=== PATIENT | male | born 1995 | race Caucasian/White ===

== ENCOUNTER 2021-08-04 10:24 | Emergency (ER) | payer OTHER, SELFPAY ==
[2021-08-04 10:30] VITALS: BP 149/85; PULSE 82; RESP 12; TEMP 37; O2SAT 100
--- NOTE | 2021-08-04 10:31 | ED.MALEGU ---
HPI - Male Genitourinary General Chief complaint: Urogenital-Male Stated complaint: Injection Time Seen by Provider: 08/04/21 10:32 Source: patient Mode of arrival: ambulatory Limitations: no limitations History of Present Illness HPI Narrative: 26 yo M presents stating he did telehealth visit and sent off oral swab to lab. Was positive for gonorrhea. Was told needed to go to an for treatment. Pt states he was notified he had gonorrhea exposure. has slight sore throat and swollen lymph node to L side of neck. No penile discharge, dysuria or swelling. he is no longer having sore throat or lymph node. Related Data Allergies Allergy/AdvReac Type Severity Reaction Status Date / Time No Known Drug Allergies Allergy Unknown NONE Verified 08/04/21 10:34 Review of Systems Review of Systems: CONSTITUTIONAL: Denies fever, chills, or sweats. EYES: Denies visual changes, redness, or discharge. ENT: Denies rhinorrhea, congestion, sore throat, or otalgia. CARDIOVASCULAR: Denies chest pain, palpitations, or edema. RESPIRATORY: Denies cough or dyspnea. GASTROINTESTINAL: Denies abdominal pain, nausea, vomiting, or diarrhea. GENITOURINARY: Denies dysuria or hematuria. SKIN: Denies rash or itching. MUSCULOSKELETAL: Denies back pain, joint pain, or myalgia. NEUROLOGIC: Denies headache, numbness, or weakness. PSYCHIATRIC: Denies anxiety or depression. All other systems reviewed are negative, except as documented in HPI. PMFSH Comments At time of signature, agree with nursing past medical, surgical, social and family history. There is no relevant family history pertinent to the presenting complaint. Exam Narrative: GENERAL: This is a well-nourished, well-developed patient, in no apparent distress. HEAD: normocephalic, atraumatic. EYES: PERRL. Sclera clear/white. Vision is grossly intact. EARS: External ears normal, auditory canals clear and without drainage, TMs normal without perforation. Hearing grossly intact. NOSE: External nose normal with no obvious nasal discharge, nares without redness, no rhinorrhea. THROAT: Mucous membranes moist, posterior pharynx clear. NECK: Neck supple, non-tender without lymphadenopathy, masses or thyromegaly. CARDIOVASCULAR: Regular rate and rhythm without murmurs, gallops, or rubs. RESPIRATORY: Clear to auscultation. Breath sounds equal bilaterally. No wheezes, rales, or rhonchi. GASTROINTESTINAL: Abdomen soft, non-tender, nondistended. Bowel sounds are active. No hepato-splenomegaly, or palpable masses. No guarding. SKIN: warm, Dry, intact with no suspicious lesions or rash, good texture and turgor. NEURO: awake, alert, and oriented to person, place and time. There were no obvious focal neurologic abnormalities. EXTREMITIES: No joint tenderness, effusion, or edema noted. No calf tenderness. Negative Homans sign bilaterally. BACK: Nontender without deformity. No CVA tenderness. Course Course Level of Care: Express Care Visit Vital Signs Vital signs: Reviewed MDM - Male Genitourinary MDM Narrative Medical decision making narrative: Patient is aware of diagnosis, understands and agrees to treatment plan. Anticipatory guidance given. Patient agrees to follow-up as directed and is aware of reasons to seek care at the emergency department. Portions of this record may have been created with voice recognition software Discharge Plan Discharge Clinical Impression: Gonorrhea Patient Disposition: Home, Self-Care Condition: Stable Instructions: Antibiotic Form, Gonorrhea (ED) Additional Instructions: Take antibiotics as prescribed until gone. Avoid all sexual activity for 2 to 3 weeks after treatment. If you are still having symptoms follow up with your primary care physician. Prescriptions: New doxycycline hyclate 100 mg capsule 100 mg PO BID 7 Days Qty: 14 RF: 0 Follow-up/Referrals: PHYSICIAN,[facility] DEVELOPER [Primary Care Provider] - Time of Disposition: 10:44
--- NOTE | 2021-08-04 11:27 | PC.NURSE ---
rocephin 500 mg was give IM right hip
== END 2021-08-04 11:11 | disposition home or self-care (01) ==
PROVIDERS: Emergency Provider Nurse Practitioner Family
DX: A54.9 Gonococcal infection, unspecified (principal)
CPT/HCPCS: 96372; 99213; G0463; J0696

== ENCOUNTER 2022-06-25 19:12 | Inpatient (IN) | payer OTHER, SELFPAY ==
--- NOTE | ~2022-06-25 | CT_ITS ---
EXAMINATION: CT chest abdomen pelvis w con DATE: 06/25/2022 20:13 INDICATION: Right lower quadrant abdominal pain. Nausea and diarrhea for 2 days. TECHNIQUE: Computed tomography (CT) of the chest, abdomen, and pelvis was performed with 100 CC Omnip aque 350 intravenous contrast. Automated exposure control and iterative reconstruction technique were employed. Exam dose: 569.03 mGy-cm total exam DLP. COMPARISON: None FINDINGS: CHEST CT: Normal heart size. No pericardial or pleural effusion. No hilar or mediastinal mass lesion or lymphad enopathy. No thoracic aortic aneurysm or dissection. The lungs are clear of infiltrate or consolidati on. ABDOMEN/PELVIS CT: The appendix is dilated, measuring up to 1.7 cm diameter, with thickening of the wall of the appendix and prominent periappendiceal fat stranding. There are appendicoliths. There is thickening of the ri ght anterior and posterior pararenal fascia as well. No abscess or intraperitoneal free air is detect ed. No hepatic, splenic, pancreatic, adrenal or renal space-occupying mass lesion is detected. No bile du ct or pancreatic duct dilatation. No urinary tract calculus or hydroureteronephrosis. The urinary palmer dder and prostate gland are unremarkable. No bowel obstruction, bowel wall thickening, pneumatosis or intraperitoneal free air. Small fat-containing umbilical hernia no inguinal hernias detected. IMPRESSION: Acute appendicitis, prominent periappendiceal inflammation Reviewed, dictated and finalized at [facility] Reviewed, dictated and finalized at [facility] PRUNER
[2022-06-25 19:13] VITALS: BP 154/72; PULSE 89; RESP 16; TEMP 36.6; O2SAT 100
--- NOTE | 2022-06-25 19:28 | ED.ABDPAIN ---
HPI - Abdominal Pain General Chief Complaint: Abdominal Pain <RODOLFO Jovel Last Filed: 06/25/22 21:04> Stated Complaint: abd pain <RODOLFO Jovel Last Filed: 06/25/22 21:04> Time Seen by Provider: 06/25/22 19:24 <RODOLFO Jovel Last Filed: 06/25/22 21:04> Source: patient <RODOLFO Jovel Last Filed: 06/25/22 21:04> Mode of arrival: ambulatory <RODOLFO Jovel Last Filed: 06/25/22 21:04> Limitations: no limitations <RODOLFO Jovel Last Filed: 06/25/22 21:04> History of Present Illness HPI narrative: Patient is a 27-year-old male who presents the ED with report of RLQ abdominal pain. Patient reports he first developed abdominal bloating and generalized discomfort 2 days ago. He took Pepto Bismol and felt better. Yesterday he experienced some pain in his mid abdomen/periumbilical region. Pain progressively worsened and became more localized to his right lower quadrant today. He tried taking ibuprofen this morning with minimal relief. Pain worse with movement, going over bumps in the road. No alleviating factors. He reports nausea and diarrhea, but denies vomiting, fevers, dysuria, hematuria, constipation, rectal bleeding. <RODOLFO Jovel Last Filed: 06/25/22 21:04> Related Data Home Medications: Home Medications Medication Instructions Recorded Confirmed No Home Medications 06/25/22 06/25/22 <RODOLFO Jovel Last Filed: 06/25/22 21:04> Allergies/Adverse Reactions: Allergies Allergy/AdvReac Type Severity Reaction Status Date / Time No Known Drug Allergies Allergy Unknown NONE Verified 08/04/21 10:34 <RODOLFO Jovel Last Filed: 06/25/22 21:04> Review of Systems Review of Systems: CONSTITUTIONAL: Denies fever, chills, or sweats. CARDIOVASCULAR: Denies chest pain. RESPIRATORY: Denies dyspnea. GASTROINTESTINAL: See HPI. GENITOURINARY: Denies dysuria or hematuria. <Zainab Benjamin PA-C - Last Filed: 06/25/22 21:04> All systems reviewed & are unremarkable except as noted in HPI and below <Zainab Benjamin PA-C - Last Filed: 06/25/22 21:04> PMFSH Past Medical History Medical History: Medical History (Updated 06/25/22 @ 19:29 by Zainab Benjamin PA-C) No pertinent past medical history <Zainab Benjamin PA-C - Last Filed: 06/25/22 21:04> Surgical History Surgical History: Surgical History (Updated 06/25/22 @ 19:29 by Zainab Benjamin PA-C) No pertinent past surgical history <Zainab Benjamin PA-C - Last Filed: 06/25/22 21:04> Social History Social History: Social History (Updated 06/25/22 @ 19:29 by Zainab Benjamin PA-C) Smoking status: Never smoker Smokeless tobacco user: dissolvable tobacco Second hand tobacco smoke exposure: No Alcohol intake: current Substance use: current Substance use type: marijuana Lack of Transportation: No Lack of Food: Never True Current Housing: I Have Housing Concerned About Future Housing: No Difficulty Paying Gas/Electric Bills: No Difficulty Paying for Meds: No Currently Unemployed: No Education: Bachelor's Degree Difficulty w/ Childcare or Family Care: No Spiritual care concerns: No <Zainab Benjamin PA-C - Last Filed: 06/25/22 21:04> Exam Narrative: GENERAL: Well appearing, well-nourished, non-toxic, in no acute distress. HEAD: Normocephalic, atraumatic. NECK: Supple. No adenopathy, no masses. RESPIRATORY: Airway patent, respirations nonlabored. Clear to auscultation bilaterally, no rales, rhonchi, wheezing. CARDIOVASCULAR: Regular rate and rhythm without murmurs, rubs, or gallops. Peripheral pulses 2+ and equal bilaterally. ABDOMINAL: Soft, mild tenderness in periumbilical region and left lower quadrant, +Rosving's. Fairly severe focal right lower quadrant tenderness with voluntary guarding and +rebo
--- NOTE | 2022-06-25 19:37 | PC.NURSE ---
Pt reports abdominal bloating a few days ago that resolved after taking pepto bismol. Diffuse abdominal pain started earlier today and is now located on right side. Pt describes as a sharp burning pain. +Nausea and diarrhea. Denies vomiting, urinary symptoms, or blood in his stool. Reports 4 episodes of diarrhea today. States certain movements and positions makes the pain worse.
[2022-06-25] MEDS: SODIUM CHLORIDE 0.9% IV 1,000 ML 999 ML IV CONT ×2 (19:42→21:06)
[2022-06-25] MEDS: ONDANSETRON INJ 4 MG/2 ML VIAL IV PUSH ×3 (19:43→21:38)
[2022-06-25] MEDS: MORPHINE SULFATE (*CRX) 4 MG/ML INJ IV PUSH ×2 (19:44→20:32)
[2022-06-25 19:48] LABS: Basophils Absolute Auto 0.1 K/mm3 (0.0-0.1); Basophils Percent Auto 0.5 % (0.2-1.2); Eosinophils Absolute Auto 0.1 K/mm3 (0-0.3); Eosinophils Percent Auto 0.5 % (0-4.4); Hematocrit 43.6 % (42.0-52.0); Hemoglobin 15.1 g/dL (14.0-18.0); Immature Granulocyte Absolute 0.04 K/mm3 (0.00-0.031); Immature Granulocyte Percent A 0.3 % (0-0.5); Lymphocytes Absolute Auto 1.27 K/mm3 (0.9-3.2); Mean Corpuscular HGB Conc 34.6 g/dl (32-36); Mean Corpuscular Hemoglobin 32.4 pg (26-34); Mean Corpuscular Volume 93.6 fl (80-100); Mean Platelet Volume 9.9 fl (7.4-10.4); Monocytes Percent Auto 7.6 % (2.6-8.5); Neutrophils Absolute Auto 10.4 K/mm3 (1.3-6.7); Neutrophils Percent Auto 81.1 % (45.5-73.1); Platelet Count Result 193 k/mm3 (150-375); Red Blood Count 4.66 M/mm3 (4.6-6.20); Red Cell Distribution Width 11.4 % (11.5-14.5); White Blood Count 12.8 K/mm3 (4.5-10.0)
[2022-06-25 19:58] LABS: Alanine Aminotransferase 21 U/L (6-50); Albumin Level 4.9 g/dL (3.5-5.1); Alkaline Phosphatase 60 U/L (38-126); Anion Gap 14 mmol/L (8-16); Aspartate Amino Transferase 29 U/L (17-59); Bilirubin,Total 1.4 mg/dL (0.2-1.3); Blood Urea Nitrogen 11 mg/dL (9-20); Calcium 9.8 mg/dL (8.4-10.2); Carbon Dioxide 24 mmol/L (22-30); Chloride 96 mmol/L (98-107); Estimated CRCL calculation 135 ml/min; Estimated Glomerular Filt Rate > 60; Glucose 97 mg/dL (65-110); Lipase 45 U/L (23-300); Sodium 134 mmol/L (137-145)
[2022-06-25 20:02] LABS: Appearance Urine Clear (Clear); Bilirubin Urine 1+ (Negative); Blood Urine Negative (Negative); Color Urine Yellow (Yellow); Glucose Urine UA Negative (Negative); Ketones Urine 4+ mg/dL (Negative); Leukocyte Esterase Ur Negative LEU/UL (Negative); Nitrate Urine Negative (Negative); Protein Urine Negative (Negative); Specific Grav Ur 1.025 (1.001-1.035); Urobilinogen Urine 0.2 mg/dL (<2.0)
[2022-06-25 20:08] LABS: Mucus Urine Rare /lpf; RBC Urine 0-2 /hpf (0-2); WBC Urine 0-3 /hpf
[2022-06-25 20:09] LABS: Add Urine Microscopic? YES
[2022-06-25 20:28] VITALS: BP 135/82; PULSE 106; RESP 18; O2SAT 100
[2022-06-25] MEDS: FAMOTIDINE 20 MG/2 ML VIAL IV PUSH ×2 (21:06→21:48)
[2022-06-25 21:18] VITALS: BP 125/67; PULSE 99; RESP 18; O2SAT 99
[2022-06-25 21:34] VITALS: BMI 25.2
[2022-06-25 21:35] VITALS: BP 131/81; PULSE 100; RESP 18; TEMP 37.3; O2SAT 100
[2022-06-25 21:41] LABS: Influenza A QL RT-PCR Negative (Negative); Influenza B QL RT-PCR Negative (Negative); SARS-CoV-2 RNA PCR Negative
[2022-06-25 21:43] VITALS: BP 131/81; PULSE 100; RESP 18; TEMP 37.3; O2SAT 100
[2022-06-25] MEDS: HYDROmorphone HCL INJ (*CRX) 1 MG/ML SYR IV PUSH (23:12)
[2022-06-26] VITALS (16 sets, daily range): BP systolic 110–145; BP diastolic 56–81; PULSE 82–115; RESP 12–20; TEMP 36.7–38.7; O2SAT 93–99
[2022-06-26] MEDS: MORPHINE SULFATE (*CRX) 4 MG/ML INJ IV PUSH (01:26)
[2022-06-26] MEDS: ONDANSETRON INJ 4 MG/2 ML VIAL IV PUSH ×3 (01:26→17:42)
[2022-06-26] MEDS: HYDROmorphone HCL INJ (*CRX) 1 MG/ML SYR IV PUSH ×4 (03:43→23:48)
--- NOTE | 2022-06-26 08:16 | PM.IMHP ---
H&P: HPI History of Present Illness Date/Time: 06/26/22 08:16 Chief Complaint: Acute appendicitis Narrative: Patient is a 27-year-old male who presented to the emergency room last evening with a 2 day history of worsening lower abdominal pain which localized to right lower quadrant of the abdomen. He had elevated white blood cell count but had no fever. CT scan of the abdomen and pelvis showed an acutely inflamed appendix with appendicoliths noted. The diameter of the appendix was 1.7cm without obvious evidence of perforation or periappendiceal abscess. He otherwise is a healthy individual without any chronic medical conditions. He has never had abdominal surgery in the past. Review of Systems Review of Systems: The remainder of the review of systems to include constitutional, HEENT, cardiovascular, respiratory, GI, , integumentary, musculoskeletal, endocrine, immunologic, hematologic, psychiatric, and neurologic are all negative except for which is mentioned above in the HPI. [facility] Past Medical History Medical History No pertinent past medical history Surgical History Surgical History No pertinent past surgical history Social History Social History Smoking status: Never smoker Smokeless tobacco user: dissolvable tobacco Second hand tobacco smoke exposure: No Alcohol intake: current Substance use: current Substance use type: marijuana Lack of Transportation: No Lack of Food: Never True Current Housing: I Have Housing Concerned About Future Housing: No Difficulty Paying Gas/Electric Bills: No Difficulty Paying for Meds: No Currently Unemployed: No Education: Bachelor's Degree Difficulty w/ Childcare or Family Care: No Spiritual care concerns: No 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 Meds Home Medications and Allergies Home Medications Medication Instructions Recorded Confirmed Type No Home Medications 06/25/22 06/25/22 History Allergies Allergy/AdvReac Type Severity Reaction Status Date / Time No Known Drug Allergies Allergy Unknown NONE Verified 08/04/21 10:34 Vital Signs Vital Signs - 24 hr 06/25/22 19:13 06/25/22 20:28 06/25/22 21:18 Temperature 36.6 C Pulse Rate 89 106 H 99 Respiratory Rate 16 18 18 Blood Pressure 154/72 H 135/82 125/67 Pulse Oximetry 100 100 99 Oxygen Delivery Room Air 06/25/22 21:35 06/25/22 21:43 06/26/22 03:17 Temperature 37.3 C 37.3 C 38.1 C H Pulse Rate 100 100 112 H Respiratory Rate 18 18 18 Blood Pressure 131/81 131/81 128/74 Pulse Oximetry 100 100 Oxygen Delivery 06/26/22 08:11 Temperature 37.9 C H Pulse Rate Respiratory Rate Blood Pressure Pulse Oximetry Oxygen Delivery Exam Const: General: uncomfortable HENMT: Mouth: Yes dry mucous membranes Eyes: General: appearance normal, both eyes and all related structures Pupils: Equal, round and reactive pupils present Neck: Neck: supple and no JVD Resp: Effort & Inspection: normal respiratory effort Auscultation: clear to auscultation bilaterally Cardio: Rate: regular rate Rhythm: regular rhythm GI: Other: Abdomen is soft and nondistended. The patient has guarding and localized peritoneal signs and tenderness upon palpation of the right lower quadrant. No generalized peritoneal signs are noted. No masses are palpated and no ventral hernias are noted. No old surgical scars are noted on the abdomen. Skin: General skin exam: normal color and no rashes or lesions noted Neuro: General: gait normal Speech: normal speech Motor exam (neuro): 5/5 motor strength present throughout Sensory Exam: normal sensation Extrem: General: normal to inspection Psych: Mental Status: mental status grossly normal Affect: normal affect H&P: Results Labs Labs: Short CBC
--- NOTE | 2022-06-26 08:19 | PC.NURSE ---
to surgery via bed
[2022-06-26] MEDS: LACTATED RINGERS 1,000 ML 30 ML IV CONT (08:20)
--- NOTE | 2022-06-26 08:42 | WPDANESEPPF ---
Anes - Initial Pre Proc Eval Procedure: Operation Date: 06/26/22 10:00 Proposed Procedures p Laparoscopic Appendectomy,Possible Open - Carlos Lofton MD Date/Time: 06/26/22 08:42 Surgeon: Carlos Lofton MD Pre Op Diagnosis: Acute Appendicitis Patient Data Age: 27 Gender: M Height: 1.85 m Weight: 84.5 kg Last Vital Signs Temp 38.7 C H 06/26/22 08:21 Pulse 107 H 06/26/22 08:21 Resp 20 06/26/22 08:21 BP 145/76 H 06/26/22 08:21 Pulse Ox 99 06/26/22 08:21 O2 Del Method Room Air 06/26/22 08:21 Allergies Allergy/AdvReac Type Severity Reaction Status Date / Time No Known Drug Allergies Allergy Unknown NONE Verified 08/04/21 10:34 Home Medications Medication Instructions Recorded Confirmed Type No Home Medications 06/25/22 06/25/22 History Laboratory Tests 06/25/22 06/25/22 06/25/22 19:33 19:33 19:33 WBC 12.8 K/mm3 H K/mm3 (4.5-10.0) RBC 4.66 M/mm3 M/mm3 (4.6-6.20) Hgb 15.1 g/dL g/dL (14.0-18.0) Hct 43.6 % % (42.0-52.0) MCV 93.6 fl fl (80-100) MCH 32.4 pg pg (26-34) MCHC 34.6 g/dl g/dl (32-36) RDW 11.4 % L % (11.5-14.5) Plt Count 193 k/mm3 k/mm3 (150-375) MPV 9.9 fl fl (7.4-10.4) Immature Gran % (Auto) 0.3 % % (0-0.5) Neut % (Auto) 81.1 % H % (45.5-73.1) Lymph % (Auto) 10.0 % L % (18.3-44.2) [place] % (Auto) 7.6 % % (2.6-8.5) Eos % (Auto) 0.5 % % (0-4.4) Baso % (Auto) 0.5 % % (0.2-1.2) Lymph # (Auto) 1.27 K/mm3 K/mm3 (0.9-3.2) [place] # (Auto) 1.0 K/mm3 H K/mm3 (0.1-0.6) Eos # (Auto) 0.1 K/mm3 K/mm3 (0-0.3) Baso # (Auto) 0.1 K/mm3 K/mm3 (0.0-0.1) Abs Immat Gran (auto) 0.04 K/mm3 H K/mm3 (0.00-0.031) Absolute Neuts (auto) 10.4 K/mm3 H K/mm3 (1.3-6.7) Absolute Nucleated RBC 0.0 K/mm3 K/mm3 (0.0-0.012) Nucleated RBC % 0.0 % % (0.0-0.2) Sodium 134 mmol/L L mmol/L (137-145) Potassium 4.0 mmol/L mmol/L (3.4-5.0) Chloride 96 mmol/L L mmol/L (98-107) Carbon Dioxide 24 mmol/L mmol/L (22-30) Anion Gap 14 mmol/L mmol/L (8-16) BUN 11 mg/dL mg/dL (9-20) Creatinine 0.80 mg/dL mg/dL (0.7-1.3) Estim Creat Clear Calc 135 ml/min ml/min Estimated GFR > 60 (59 - ) Glucose 97 mg/dL mg/dL (65-110) Calcium 9.8 mg/dL mg/dL (8.4-10.2) Total Bilirubin 1.4 mg/dL H mg/dL (0.2-1.3) AST 29 U/L U/L (17-59) ALT 21 U/L U/L (6-50) Alkaline Phosphatase 60 U/L U/L (38-126) Total Protein 8.0 g/dL g/dL (6.3-8.2) Albumin 4.9 g/dL g/dL (3.5-5.1) Lipase 45 U/L U/L (23-300) Urine Color Yellow (Yellow) Urine Appearance Clear (Clear) Urine pH 6.0 (5.0-9.0) Ur Specific Center 1.025 (1.001-1.035) Urine Protein Negative mg/dL mg/dL (Negative) Urine Glucose (UA) Negative mg/dL mg/dL (Negative) Urine Ketones 4+ mg/dL H mg/dL (Negative) Ur Blood (Man) Negative (Negative) Urine Nitrate Negative (Negative) Urine Bilirubin 1+ H (Negative) Urine Urobilinogen 0.2 mg/dL mg/dL (<2.0) Leukocyte Esterase Rfl Negative CHRISTIAN/UL CHRISTIAN/UL (Negative) Urine RBC 0-2 /hpf /hpf (0-2) Urine WBC 0-3 /hpf /hpf Urine Mucus Rare /lpf /lpf Influenza A (RT-PCR) Influenza B (RT-PCR) SARS-CoV-2 RNA (RT-PCR) 06/25/22 20:51 WBC RBC Hgb Hct MCV MCH MCHC RDW Plt Count MPV Immature Gran % (Auto) Neut % (Auto) Lymph % (Auto) [place] % (Auto) Eos % (Auto) B
--- NOTE | 2022-06-26 08:53 | WPDHPUPDATE1 ---
History and Physical Update Update Date/Time: 06/26/22 08:53 History and Physical has been reviewed, including an updated exam of the patient. There are NO changes in the patient's condition. Risks, benefits, and alternatives have been discussed and questions answered. Patient agrees to proceed with procedure.
[2022-06-26] MEDS: LIDOCAINE HCL 1% PF 30 ML VIAL INFILTRATE (09:35)
[2022-06-26] MEDS: BUPIVACAINE/EPINEPHRINE 0.5% 10 ML VIAL 30 ML INFILTRATE (09:36)
[2022-06-26] MEDS: KETOROLAC 30 MG/ML VIAL (*BKC) IV PUSH (10:14)
--- NOTE | 2022-06-26 10:32 | W.PM.PROC2 ---
Procedure Note - Detailed Date of Procedure 06/26/22 Pre-op Diagnosis Acute Appendicitis Post-op Diagnosis Same Procedure Performed Laparoscopic appendectomy. Surgeon Carlos Lofton MD Anesthesia General Indications The patient is a 19-year-old male who presented to the emergency room late last evening with a 2 day history of worsening right lower quadrant abdominal pain. CT scan showed an advanced acute appendicitis without rupture or periappendiceal abscess at the time of the CT scan. He is being brought to the room now for an emergent laparoscopic appendectomy. Findings The appendix was very dilated and inflamed. The distal 2/3 of the appendix was gangrenous. There is no periappendiceal abscess or rupture of the appendix prior to the surgery. 2 fecaliths were noted in the appendix. There was peritonitis in the right lower quadrant but no purulent fluid or inflammatory changes in the pelvis. Description of Procedure Informed consent was obtained the patient was brought to the operating room where he is placed in supine position and then general endotracheal anesthesia was administered. A Saenz catheter was placed to decompress the bladder and an orogastric tube was placed to decompress the stomach. The abdomen was then prepped and draped in usual sterile fashion. A time-out was then performed correctly identifying the patient as well as procedure to be performed and verified that he was on scheduled IV antibiotics. I then gained access into the abdomen by placing a 5millimeter Optiview port in the left upper quadrant the direct optical insertion. The abdomen was insufflated to a lack a pneumoperitoneum of 15millimeters mercury CO2. I then placed additional trocar ports to include a 12millimeter periumbilical trocar port and a 5millimeter trocar port in suprapubic region and in the right lower quadrant. working through all these ports I was able to identify the dilated and inflamed and partially necrotic appendix in the right lower quadrant. the appendix was gangrenous in the distal 2/3 but there was no perforation or periappendiceal abscess. Upon manipulating the appendix because it was all dilated and tense in the ruptured in the midportion. I quickly aspirated the pus and removed the 2 fecaliths which came out of the appendix. I was unable to make a defect through the mesoappendix just at the base the appendix with a laparoscopic dissector and then used a 45millimeter Endo-RAVINDRA Stapler to divide the appendix flush with the cecum. I then used a vascular reload to the Stapler to divide the mesoappendix. The distal half of the mesoappendix was then divided after placement of hemoclips with her scopic scissors. The appendix was then placed into an Endo-Catch bag and brought out through the periumbilical trocar port site. I then irrigated out the right lower quadrant the abdomen with about 2liters of saline irrigation. I irrigated until the fluid was clear. Both staple lines were inspected and they were hemostatic. There was no gross fecal material left in the right lower quadrant after the irrigation. I then irrigated out the pelvis and aspirate the fluid which was relatively clear. I then placed a 15 Romanian round Lance drain through the supraumbilical trocar port site and placed it into the pelvis with the tip running alongside the staple lines. The drain was sutured in placed the skin level with a 3 nylon suture. I then removed all the trocar ports under direct visualization and all port sites were hemostatic. I then allowed the abdomen to decompress. I then irrigated all the port sites with sterile saline solution. The 12millimeter periumbilical trocar port site fascia defect was closed utilizing a 0 Vicryl suture placed in a figure of eight fashion. The incisions were then closed utilizing running subcuticular 4 0 Monocryl sutures and then skin glue was placed for a final dressing. The patient tolerated the procedure well and there no complications. All sp
--- NOTE | 2022-06-26 11:37 | SUR.PHASEI ---
1130 - family member updated
--- NOTE | 2022-06-26 12:45 | PC.NURSE ---
pt returned from surgery, resting comfortably, zofran given for very mild nausea at this time, reviewed orders and plan of care, father at bedside
[2022-06-26] MEDS: FAMOTIDINE 20 MG/2 ML VIAL IV PUSH (20:13)
[2022-06-26] MEDS: DEXTROSE 5%/0.9% SOD CHL 1,000 ML 100 ML IV CONT (21:00)
[2022-06-26] MEDS: oxyCODONE HCL (*CRX) 5 MG TAB IR PO (21:21)
[2022-06-27] MEDS: oxyCODONE HCL (*CRX) 5 MG TAB IR PO ×3 (03:52→17:33)
[2022-06-27] MEDS: DEXTROSE 5%/0.9% SOD CHL 1,000 ML 100 ML IV CONT ×2 (04:45→20:09)
[2022-06-27] MEDS: HYDROmorphone HCL INJ (*CRX) 1 MG/ML SYR IV PUSH ×2 (04:49→23:01)
[2022-06-27 05:02] VITALS: BP 101/77; PULSE 95; RESP 18; TEMP 37.4; O2SAT 93
[2022-06-27] MEDS: FAMOTIDINE 20 MG/2 ML VIAL IV PUSH ×2 (08:12→20:10)
[2022-06-27] MEDS: ONDANSETRON INJ 4 MG/2 ML VIAL IV PUSH (08:15)
[2022-06-27 11:52] LABS: Basophils Percent Auto 0.3 % (0.2-1.2); Hematocrit 41.6 % (42.0-52.0); Hemoglobin 13.9 g/dL (14.0-18.0); Immature Granulocyte Absolute 0.04 K/mm3 (0.00-0.031); Immature Granulocyte Percent A 0.3 % (0-0.5); Lymphocytes Absolute Auto 0.54 K/mm3 (0.9-3.2); Lymphocytes Percent Auto 3.8 % (18.3-44.2); Mean Corpuscular HGB Conc 33.4 g/dl (32-36); Mean Corpuscular Hemoglobin 32.6 pg (26-34); Mean Corpuscular Volume 97.7 fl (80-100); Mean Platelet Volume 9.6 fl (7.4-10.4); Monocytes Absolute Auto 1.2 K/mm3 (0.1-0.6); Monocytes Percent Auto 8.7 % (2.6-8.5); Neutrophils Absolute Auto 12.2 K/mm3 (1.3-6.7); Neutrophils Percent Auto 86.9 % (45.5-73.1); Platelet Count Result 187 k/mm3 (150-375); Red Blood Count 4.26 M/mm3 (4.6-6.20); Red Cell Distribution Width 11.9 % (11.5-14.5); White Blood Count 14.1 K/mm3 (4.5-10.0)
[2022-06-27 12:01] LABS: Anion Gap 7 mmol/L (8-16); Blood Urea Nitrogen 10 mg/dL (9-20); Calcium 8.8 mg/dL (8.4-10.2); Carbon Dioxide 30 mmol/L (22-30); Chloride 95 mmol/L (98-107); Estimated CRCL calculation 100 ml/min; Estimated Glomerular Filt Rate > 60; Glucose 130 mg/dL (65-110); Potassium 4.1 mmol/L (3.4-5.0); Sodium 132 mmol/L (137-145)
--- NOTE | 2022-06-27 13:23 | PM.PNGS ---
Progress Note: A&P Assessment and Plan (1) Acute appendicitis: Code(s): K35.80 - Unspecified acute appendicitis Status: Acute Assessment and Plan: The patient is doing as expected for postop day 1 after his laparoscopic appendectomy for gangrenous appendicitis and non fecal peritonitis. He has tolerated clear liquids and is ambulating without difficulty. he remained on IV antibiotics and will follow white blood cell count. The drain has no purulence in an. Will continue supportive care today and advance diet as tolerated. I encouraged him to sit up in a chair a walker as much as he can take. Hopefully things will improve more tomorrow and his postoperative ileus will resolve and he can be discharged home on oral antibiotics. Subjective Subjective Date/Time Seen: 06/27/22 13:23 Post Op day: 1 (Status post laparoscopic appendectomy for gangrenous appendicitis) Patient reports: feels better, pain is less, no flatus and afebrile Interval history: The patient feels better today and is up walking around in his room. he has tolerated some clear liquids. He feels bloated has not had any flatus or bowel movement yet. He has soreness around his port site incisions but his severe right lower quadrant abdominal pain has resolved. White blood cell count today is 14,000. He remains on IV antibiotics due to the gangrenous appendicitis. Exam GI: Other: Abdomen soft and mildly distended. Decreased bowel sounds. Port site incisions are dry intact with expected tenderness around the port sites. RONALD drain as expected serosanguineous fluid without evidence of fecal material in the fluid. Objective Data Vital Signs Vital Signs: Vital Signs - 24 hr 06/26/22 13:40 06/26/22 14:40 06/26/22 18:41 Temperature 36.9 C 36.8 C 37.7 C H Pulse Rate 100 88 109 H Respiratory Rate 18 16 18 Blood Pressure 129/66 116/60 122/70 Pulse Oximetry 96 96 99 Oxygen Delivery 06/26/22 19:31 06/26/22 20:02 06/26/22 23:49 Temperature 37.7 C H 37.2 C Pulse Rate 107 H 109 H Respiratory Rate 18 20 Blood Pressure 121/68 115/56 L Pulse Oximetry 97 93 Oxygen Delivery Room Air 06/27/22 05:02 Temperature 37.4 C Pulse Rate 95 Respiratory Rate 18 Blood Pressure 101/77 Pulse Oximetry 93 Oxygen Delivery Intake/Output Intake/Output: Intake & Output 06/24/22 06/25/22 06/26/22 06/27/22 23:59 23:59 23:59 23:59 Intake Total 1050 1810 1590 Output Total 50 1590 Balance 1050 1760 0 Meds/Results Medications: Active Medications Generic Name Dose Route Start Last Admin Trade Name Freq PRN Reason Stop Dose Admin Famotidine 20 mg 06/25/22 21:00 06/27/22 08:12 Famotidine 20 Mg/2 Ml Vial IV PUSH 20 mg Q12HR JD Administration Hydromorphone HCl 1 mg 06/25/22 20:30 06/27/22 04:49 Hydromorphone Hcl Inj (*Crx) 1 Mg/Ml Syr IV PUSH 1 mg Q4H PRN Administration Pain Rated 7-10 Piperacillin/Tazobactam/Dextrose 3.375 gm in 50 mls @ 100 mls/hr 06/26/22 06:00 06/27/22 11:33 Zosyn 3.375 Gm/D5w 50ml Pm IVPB 100 mls/hr Q6H JD Administration Dextrose/Sodium Chloride 1,000 mls @ 100 mls/hr 06/26/22 08:30 06/27/22 04:52 Dextrose 5% Sodium Chloride 0.9% IV CONT Not Given .Q10H JD Ondansetron HCl 4 mg 06/25/22 20:30 06/27/22 08:15 Ondansetron Inj 4 Mg/2 Ml Vial IV PUSH 4 mg Q4H PRN Administration Nausea Oxycodone HCl 5 mg 06/26/22 12:14 06/27/22 11:33 Oxycodone Hcl (*Crx) 5 Mg Tab Ir PO 5 mg Q6H PRN Administration Pain Rated 7-10 Radiology Results: ITS Impressions Chest/Abdomen/Pelvis CT 06/25/22 20:16 IMPRESSION: Acute appendicitis, prominent periappendiceal inflammation Labs Labs: Laboratory Results - last 24 hr 06/27/22 06/27/22 11:45 11:45 WBC 14.1 H RBC 4.26 L Hgb 13.9 L Hct 41.6 L MCV 97.7 MCH 32.6 MCHC 33.4 RDW 11.9 Plt Count 187 MPV 9.6 Immature Gran % (Auto) 0.3 Neut % (Auto) 86.
[2022-06-27] MEDS: LACTATED RINGERS 1,000 ML 250 ML IV CONT (14:49)
[2022-06-27 15:05] VITALS: BP 115/69; PULSE 91; RESP 22; TEMP 37.4; O2SAT 98
[2022-06-27 20:01] VITALS: BP 105/62; PULSE 101; RESP 20; TEMP 38; O2SAT 97
[2022-06-27 21:00] VITALS: TEMP 37
[2022-06-27 21:06] VITALS: TEMP 37
[2022-06-28 00:16] VITALS: BP 120/65; PULSE 100; RESP 20; TEMP 37.3; O2SAT 96
[2022-06-28] MEDS: oxyCODONE HCL (*CRX) 5 MG TAB IR PO (04:19)
[2022-06-28] MEDS: DEXTROSE 5%/0.9% SOD CHL 1,000 ML 100 ML IV CONT (05:13)
[2022-06-28 05:30] VITALS: BP 111/68; PULSE 84; RESP 20; TEMP 37.4; O2SAT 96
[2022-06-28 05:40] LABS: Basophils Percent Auto 0.3 % (0.2-1.2); Eosinophils Percent Auto 0.5 % (0-4.4); Hematocrit 37.2 % (42.0-52.0); Hemoglobin 12.1 g/dL (14.0-18.0); Immature Granulocyte Absolute 0.02 K/mm3 (0.00-0.031); Immature Granulocyte Percent A 0.3 % (0-0.5); Lymphocytes Absolute Auto 0.87 K/mm3 (0.9-3.2); Lymphocytes Percent Auto 11.2 % (18.3-44.2); Mean Corpuscular HGB Conc 32.5 g/dl (32-36); Mean Corpuscular Hemoglobin 32.4 pg (26-34); Mean Corpuscular Volume 99.7 fl (80-100); Mean Platelet Volume 10.3 fl (7.4-10.4); Monocytes Absolute Auto 0.7 K/mm3 (0.1-0.6); Monocytes Percent Auto 9.3 % (2.6-8.5); Neutrophils Absolute Auto 6.1 K/mm3 (1.3-6.7); Neutrophils Percent Auto 78.4 % (45.5-73.1); Platelet Count Result 166 k/mm3 (150-375); Red Blood Count 3.73 M/mm3 (4.6-6.20); Red Cell Distribution Width 11.9 % (11.5-14.5); White Blood Count 7.8 K/mm3 (4.5-10.0)
[2022-06-28 05:50] LABS: Anion Gap 3 mmol/L (8-16); Blood Urea Nitrogen 6 mg/dL (9-20); Calcium 8.4 mg/dL (8.4-10.2); Carbon Dioxide 32 mmol/L (22-30); Chloride 99 mmol/L (98-107); Estimated CRCL calculation 121 ml/min; Estimated Glomerular Filt Rate > 60; Glucose 119 mg/dL (65-110); Potassium 3.9 mmol/L (3.4-5.0); Sodium 134 mmol/L (137-145)
[2022-06-28] MEDS: FAMOTIDINE 20 MG/2 ML VIAL IV PUSH (09:00)
--- NOTE | 2022-06-28 12:38 | PM.DS ---
DS: Admitting Diagnosis Discharge Date June 28, 2022 Admitting Diagnosis Acute appendicitis DS: Discharge Diagnosis Discharge Diagnosis (1) Acute gangrenous appendicitis: Code(s): K35.891 - Other acute appendicitis without perforation, with gangrene Status: Resolved Assessment and Plan: Patient underwent a emergent laparoscopic appendectomy. He remained in the hospital for 2 days postop for additional IV antibiotic therapy due to rupture of the appendix during the surgery. He is doing well now and his white blood cell count is normalized. We will remove his RONALD drain and discharge him home on oral antibiotics for another 7 days. DS: Summary Hospital Course Reason for hospitalization: acute appendicitis Hospital Course: patient presented to the emergency room with a 2 day history of worsening mid abdominal pain which localized to right lower quadrant of the abdomen. He was hemodynamically stable and afebrile at the time of presentation. Abdominal exam at that time revealed regarding and rebound tenderness to palpation of the right lower quadrant over the area of McBurney's point. He had elevated white blood cell count of 13,000 at time of admission. CT scan abdomen pelvis showed a dilated and inflamed appendix measuring 1.7cm in diameter without evidence of rupture or periappendiceal abscess at the time of the CT scan. He was given IV fluids and admitted to the surgical floor on IV antibiotics ( Zosyn ). The next morning he was still stable that the pain had increased and so he was taken emergently to the operating room where he underwent a successful laparoscopic appendectomy. During manipulation of the appendix it did rupture and there was spillage of pus and fecaliths. For this reason after surgery he had a short postoperative ileus and reactive leukocytosis which both resolved. He continued on IV antibiotics for 2 days after surgery. At the time of discharge his white blood cell count had normalized and he was afebrile. His pain was much improved and the output from the RONALD drain was serous. The drain was removed prior to discharge and he was sent home on Augmentin for oral antibiotics for another 7 days Status at Discharge Cognitive/behavioral status at discharge: mental status time of discharge is normal Functional status at discharge: independent ambulation Overall status at discharge: patient is back to baseline Time Spent with Patient Time attestation: Total time spent providing and/or coordinating discharge services: Time spent: Less than 30 minutes Exam Const: General: comfortable HENMT: Mouth: Yes moist mucous membranes Eyes: Sclera: sclerae normal Pupils: Equal, round and reactive pupils present EOM: EOMs intact bilaterally Neck: Neck: supple and no JVD Resp: Effort & Inspection: normal respiratory effort Auscultation: clear to auscultation bilaterally Cardio: Rate: regular rate Rhythm: regular rhythm GI: Other: Abdomen is soft and nondistended. Expected mild tenderness to palpation around the port sites. Port site incisions are healing well without redness or drainage. RONALD drain was removed at the bedside and the site was covered with dry gauze. : Male General Exam: Yes normal external exam Skin: General skin exam: normal color and no rashes or lesions noted Neuro: General: gait normal Motor exam (neuro): 5/5 motor strength present throughout and Motor abnormalites present Sensory Exam: normal sensation Extrem: General: normal to inspection Psych: Mental Status: mental status grossly normal Affect: normal affect DS: Data Data Completed and Pending Pending studies at discharge: Pending at discharge 06/26/22 09:44 Surgical [PTH] Routine Labs on day of discharge: Labs from last 24 hours 06/28/22 06/28/22 04:18 04:18 WBC 7.8 RBC 3.73 L Hgb 12.1 L Hct 37.2 L MCV 99.7 MCH 32.4 MCHC 32.5 RDW 11.9 Plt Count 166 MPV 10.3
--- NOTE | 2022-06-28 12:58 | PC.NURSE ---
Dr. Lofton removed the RONALD drain at around 1255 06/28/22.
== END 2022-06-28 13:55 | disposition home or self-care (01) | DRG 343 ==
LOC: ANHED 20:31 → ANH2MED 21:03
PROVIDERS: Physician Assistant; Admitting Provider Surgery; Emergency Provider General Practice; Visit Provider Surgery
PROC: 0DTJ4ZZ Resection of Appendix, Percutaneous Endoscopic Approach (ICD-10-PCS; CPT 44970; principal; 2022-06-26 10:00)
DX: K35.31 Acute appendicitis with localized peritonitis and gangrene, without perforation (principal); K38.1 Appendicular concretions; Z20.822 Contact with and (suspected) exposure to COVID-19; K35.32 Acute appendicitis with perforation, localized peritonitis, and gangrene, without abscess
CPT/HCPCS: 36415; 71260; 74177; 80048; 80053; 81001; 83690; 85025; 87636; 88304; 96361; 96365; 96366; 96375; 96376; 99285; A9270; G0378; J0131; J0330; J1170; J1885; J2250; J2270; J2405; J2543; J2710; J7030; J7042; J7120; Q9967

== ENCOUNTER 2023-06-01 13:28 | Emergency (ER) | payer OTHER, SELFPAY ==
[2023-06-01 13:34] VITALS: BP 128/73; PULSE 81; RESP 16; TEMP 37; O2SAT 100
--- NOTE | 2023-06-01 13:36 | ED.URI ---
HPI - URI/Sore Throat General Chief Complaint: Upper Respiratory Infection Stated Complaint: Strep symptoms Time Seen by Provider: 06/01/23 13:36 Source: patient, RN notes reviewed and old records reviewed Mode of arrival: ambulatory Limitations: no limitations History of Present Illness HPI Narrative: 28-year-old male presents to the [facility] with a sore throat since yesterday. Has taken Motrin and Tylenol MD elicited complaint: sore throat Onset (ago): day(s) (1) Treatments prior to arrival: acetaminophen and ibuprofen Related Data Allergies Allergy/AdvReac Type Severity Reaction Status Date / Time No Known Drug Allergies Allergy Unknown NONE Verified 08/04/21 10:34 Review of Systems Review of Systems: All systems reviewed & are unremarkable except as noted in HPI and below Constitutional: Constitutional: Reports no additional constitutional complaints Eyes: Eyes: Reports no additional eye complaints ENT: Reports as per HPI and Reports sore throat Cardiovascular: Cardiovascular: Reports no additional cardiovascular complaints, Denies chest pain and Denies dyspnea Respiratory: Respiratory: Reports no additional respiratory complaints, Denies chest congestion, Denies cough and Denies dyspnea Gastrointestinal: Gastrointestinal: Reports no additional gastrointestinal complaints, Denies abdominal pain, Denies nausea and Denies vomiting Musculoskeletal: Musculoskeletal: Reports no additional musculoskeletal complaints Integumentary/Breasts: Skin/Breast: Reports system reviewed and no additional complaints, except as docu Neurologic: Reports system reviewed and no additional complaints, except as documented Psychiatric: Psychiatric: Reports no additional psychiatric complaints Allergic/Immunologic: Allergic/Immunologic: Reports no additional allergic/immunologic complaints PMFSH Past Medical History Medical History No pertinent past medical history Surgical History Surgical History No pertinent past surgical history Social History Social History Smoking status: Never smoker Smokeless tobacco user: dissolvable tobacco Second hand tobacco smoke exposure: No Alcohol intake: current Substance use: current Substance use type: marijuana Lack of Transportation: No Lack of Food: Never True Current Housing: I Have Housing Concerned About Future Housing: No Difficulty Paying Gas/Electric Bills: No Difficulty Paying for Meds: No Currently Unemployed: No Education: Bachelor's Degree Difficulty w/ Childcare or Family Care: No Spiritual care concerns: No Comments At the time of my signature, I reviewed and agree with the nursing past medical, surgical, social, and family history. There is no relevant family history pertinent to the patient complaint. Exam Const: General: cooperative, healthy appearing, comfortable, no acute distress, well developed, alert and well nourished Nutritional Appearance: well nourished Orientation/consciousness: patient oriented x3 Limitations: no limitations HENMT: Head: normal to inspection Ears: hearing grossly normal bilaterally, external ears normal, TM's normal bilaterally, EAC's normal, mastoids normal and no periauricular adenopathy Face/Nose/Sinus: Normal external nose present, Normal nares present, Normal nasal mucous membranes and turbinates present, normal facial exam and face symmetric Face and sinus: normal facial exam and face symmetric Mouth: Yes Normal oral and palatal mucosa present, Yes lip normal and Yes moist mucous membranes Throat: posterior oropharynx normal, tonsils normal, uvula midline, uvula not displaced and no uvular edema Eyes: General: appearance normal, both eyes and all related structures Alignment and Position: alignment normal Periorbital: periorbital findings n
== END 2023-06-01 14:24 | disposition home or self-care (01) ==
PROVIDERS: Emergency Provider Nurse Practitioner
DX: J06.9 Acute upper respiratory infection, unspecified (principal); J02.9 Acute pharyngitis, unspecified
CPT/HCPCS: 87081; 87880; 99213; G0463

== ENCOUNTER 2023-06-01 18:54 | Emergency (ER) | payer OTHER, SELFPAY ==
--- NOTE | ~2023-06-01 | CT_ITS ---
EXAMINATION: CT soft tissue neck w con DATE: 06/01/2023 21:37 INDICATION: Sore throat. Left tonsillar enlargement. TECHNIQUE: Computed tomography (CT) of the neck was performed with 75 mL Omnipaque-350 intravenous co ntrast. Automated exposure control and iterative reconstruction technique were employed. The dose-tom gth product was 448.47 mGy-cm. COMPARISON: None FINDINGS: The left palatine tonsil is enlarged. There is gas in the left palatine tonsil. No drainabl e fluid. There is mild left internal jugular chain lymphadenopathy. There is mild mucosal thickening in the paranasal sinuses. There is mild cervical spondylosis. IMPRESSION: 1. Enlarged left palatine tonsil containing gas, likely an abscess status post spontaneous drainage. No residual drainable fluid component. 2. Mild left cervical lymphadenopathy, likely reactive. Reviewed, dictated and finalized at location [facility] [employer]
[2023-06-01 18:54] VITALS: BP 168/92; PULSE 103; RESP 20; TEMP 37.1; O2SAT 100
--- NOTE | 2023-06-01 21:14 | ED.GENADULT ---
HPI - General Adult General Chief complaint: Unspecified Stated complaint: sore throat Time Seen by Provider: 06/01/23 20:24 Source: patient Mode of arrival: ambulatory Limitations: no limitations History of Present Illness HPI narrative: This is a 28-year-old male with PMH of [employer] who presents to the ED with chief complaint of sore throat beginning yesterday. He was seen by urgent care earlier today was given antibiotic prescription for tonsillitis. He reports that shortly after getting home from Urgent Care, he washes mouth some mouthwash in no was some blood in the sink. Reports that since then he has spit up some blood clots that he believes are from the tonsillar area. Reports soreness has actually improved a little bit since expulsion of blood clots. Reports that he has had [employer] in the past and this does not feel quite as painful or distressing. Endorses chills but no recorded fevers. Denies cough, congestion, shortness breath, chest pain. Related Data Allergies Allergy/AdvReac Type Severity Reaction Status Date / Time No Known Drug Allergies Allergy Unknown NONE Verified 06/01/23 20:18 Review of Systems Review of Systems: All systems as dictated in [facility] Past Medical History Medical History No pertinent past medical history Surgical History Surgical History No pertinent past surgical history Social History Social History Smoking status: Never smoker Smokeless tobacco user: dissolvable tobacco Second hand tobacco smoke exposure: No Alcohol intake: current Substance use: current Substance use type: marijuana Lack of Transportation: No Lack of Food: Never True Current Housing: I Have Housing Concerned About Future Housing: No Difficulty Paying Gas/Electric Bills: No Difficulty Paying for Meds: No Currently Unemployed: No Education: Bachelor's Degree Difficulty w/ Childcare or Family Care: No Spiritual care concerns: No Exam Narrative: GENERAL: Well-appearing, well-nourished, and in no acute distress. HEAD: Normocephalic, atraumatic. EYES: PERRLA and EOMI. ENT: Left tonsillar hypertrophy noted. Uvula midline. There are visualized blood clots to the left tonsil. NECK: Supple. No adenopathy or masses. CHEST: No respiratory distress. Clear to auscultation. No wheezes rales or rhonchi HEART: Regular rate and rhythm. No murmur heard. Normal peripheral pulses. ABDOMEN: Soft, nontender, nondistended, normal active bowel sounds. MSK: Normal range of motion. No edema. SKIN: Warm, dry, no rash. NEURO: Alert and oriented x3. No focal deficits. PSYCH: Normal mood and affect. Course Course Emergency Course: Consult 2199: spoke with Dr. Griffin, ENT. Recommends treating this likely hemorrhagic tonsillitis as an acute tonsillitis/[employer]. He does advise against taking to operating room at this point given the patient is otherwise stable and bleeding has slowed. Recommends outpatient treatment with augmentin and clindamycin and strict return precautions. Vital Signs Vital signs: Vital Signs Temperature 98.7 F 06/01/23 18:54 Pulse Rate 103 H 06/01/23 18:54 Respiratory Rate 20 06/01/23 18:54 Blood Pressure 168/92 H 06/01/23 18:54 Pulse Oximetry 100 06/01/23 18:54 Oxygen Delivery Room Air 06/01/23 18:54 Temperature 98.7 F 06/01/23 18:54 Pulse Rate 103 H 06/01/23 18:54 Respiratory Rate 20 06/01/23 18:54 Blood Pressure 168/92 H 06/01/23 18:54 Pulse Oximetry 100 06/01/23 18:54 Oxygen Delivery Room Air 06/01/23 18:54 Medical Decision Making [facility] Narrative Medical decision making narrative: This is a 28-year-old male who presents to the ED with chief complaint left sided sore throat as well as spitting up blood clots. Vitals are normal. Exam reveals markedly enlarg
[2023-06-01 21:32] LABS: Estimated CRCL calculation 120 ml/min; Estimated Glomerular Filt Rate > 60
[2023-06-01 21:32] LABS: Basophils Percent Auto 0.6 % (0.2-1.2); Eosinophils Absolute Auto 0.1 K/mm3 (0-0.3); Eosinophils Percent Auto 1.3 % (0-4.4); Hematocrit 42.5 % (42.0-52.0); Hemoglobin 13.8 g/dL (14.0-18.0); Immature Granulocyte Absolute 0.02 K/mm3 (0.00-0.031); Immature Granulocyte Percent A 0.3 % (0-0.5); Lymphocytes Absolute Auto 0.74 K/mm3 (0.9-3.2); Lymphocytes Percent Auto 10.4 % (18.3-44.2); Mean Corpuscular HGB Conc 32.5 g/dl (32-36); Mean Corpuscular Hemoglobin 32.2 pg (26-34); Mean Corpuscular Volume 99.3 fl (80-100); Monocytes Absolute Auto 0.6 K/mm3 (0.1-0.6); Monocytes Percent Auto 8.6 % (2.6-8.5); Neutrophils Absolute Auto 5.6 K/mm3 (1.3-6.7); Neutrophils Percent Auto 78.8 % (45.5-73.1); Platelet Count Result 189 k/mm3 (150-375); Red Blood Count 4.28 M/mm3 (4.6-6.20); Red Cell Distribution Width 11.9 % (11.5-14.5); White Blood Count 7.1 K/mm3 (4.5-10.0)
[2023-06-01 21:43] LABS: Alanine Aminotransferase 23 U/L (6-50); Albumin Level 4.6 g/dL (3.5-5.1); Alkaline Phosphatase 57 U/L (38-126); Anion Gap 9 mmol/L (8-16); Aspartate Amino Transferase 29 U/L (17-59); Bilirubin,Total 0.6 mg/dL (0.2-1.3); Blood Urea Nitrogen 11 mg/dL (9-20); CRP 4.4 mg/dL (<1.0); Calcium 9.5 mg/dL (8.4-10.2); Carbon Dioxide 31 mmol/L (22-30); Chloride 102 mmol/L (98-107); Estimated CRCL calculation 134 ml/min; Estimated Glomerular Filt Rate > 60; Glucose 116 mg/dL (65-110); Potassium 4.1 mmol/L (3.4-5.0); Sodium 142 mmol/L (137-145)
[2023-06-01] MEDS: ACETAMINOPHEN 500 MG TABLET 1000 MG PO (22:48)
== END 2023-06-01 22:53 | disposition home or self-care (01) ==
PROVIDERS: Emergency Provider Physician Assistant
DX: J36 Peritonsillar abscess (principal)
CPT/HCPCS: 36415; 70491; 80053; 85025; 86140; 87081; 87880; 96365; 96375; 99284; A9270; J0696; J1100; Q9967